=== PATIENT | male | born 1985 | race Caucasian/White ===

== ENCOUNTER 2019-02-02 10:00 | Emergency (ER) | payer SELFPAY ==
[2019-02-02] MEDS ORDERED: Benzocaine 20% Topical Spray UD MUCMEM ONE (10:17)
[2019-02-02] MEDS ORDERED: Lidocaine 2% Viscous Solution 15 ML Cup PO ONE (10:17)
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
== END 2019-02-02 10:32 | disposition home or self-care (01) ==
LOC: MW.ED 10:00
DX: K02.9 Dental caries, unspecified (principal); Z88.5 Allergy status to narcotic agent; Z88.6 Allergy status to analgesic agent
CPT/HCPCS: 99282; A9270